=== PATIENT | male | born 1940 | race Caucasian/White ===

== ENCOUNTER 2017-10-08 05:41 | Day surgery (SDC) | payer MEDICARE ==
[~2017-10-08] VITALS: Ht 188 cm; Wt 88.0 kg
[~2017-10-08 05:41] MED LIST: CALCIUM PO; MAG PO; MULT-516 PO; TAMS-11 PO; ZINC PO; [UNRECOGNIZED DRUG - OTHER] PO
[2017-10-08] MEDS ORDERED: LACTATED RINGERS 1,000 ML IV SCH (06:06)
[2017-10-08] MEDS ORDERED: FENTANYL PF 250 MCG/5ML ONE (06:53)
[2017-10-08] MEDS ORDERED: MIDAZOLAM 1 MG/ML, 2ML ONE (06:53)
[2017-10-08] MEDS ORDERED: LIDOCAINE PF 2%, 5ML ONE (07:50)
[2017-10-08] MEDS ORDERED: DEXAMETHASONE 4 MG/ML, 1ML ONE (07:50)
[2017-10-08] MEDS ORDERED: ONDANSETRON 2MG/ML, 2ML ONE (07:50)
[2017-10-08] MEDS ORDERED: PROPOFOL 10 MG/ML, 20ML ONE (07:50)
[2017-10-08] MEDS ORDERED: CEFTRIAXONE 1,000 MG ONE (08:05)
[2017-10-08] MEDS ORDERED: PROMETHAZINE 25 MG/ML, 1ML IV PRN (09:30)
[2017-10-08] MEDS ORDERED: ACETAMINOPHEN 325 MG TABLET PO PRN (09:30)
[2017-10-08] MEDS ORDERED: ALBUTEROL SULFATE 2.5 MG/3 ML NPPB PRN (09:30)
[2017-10-08] MEDS ORDERED: OXYcodone 5 MG/5 ML ORAL.SOL UDC PO PRN (09:30)
[2017-10-08] MEDS ORDERED: HYDROmorphone 1 MG/ML, 1ML IV PRN (09:30)
[2017-10-08] MEDS ORDERED: METOPROLOL 1 MG/ML, 5ML IV PRN (09:30)
[2017-10-08] MEDS ORDERED: FENTANYL PF 100 MCG/2ML IV PRN (09:30)
[2017-10-08] MEDS ORDERED: hydrALAzine 20 MG/ML, 1ML IV PRN (09:30)
[2017-10-08] MEDS ORDERED: ACETAMINOPHEN 650 MG/20.3 ML UDC ONE (09:50)
[2017-10-08] MEDS ORDERED: OXYcodone 5 MG/5 ML ORAL.SOL UDC ONE (09:51)
== END 2017-10-08 13:50 ==
LOC: OUT 05:41
PROVIDERS: ATTEND Urology
DX: N40.0 Benign prostatic hyperplasia without lower urinary tract symptoms (principal); I10 Essential (primary) hypertension; I25.2 Old myocardial infarction; Z86.73 Personal history of transient ischemic attack (TIA), and cerebral infarction without residual deficits
CPT/HCPCS: 52630; 88305; 93005; C1769; J0696; J1100; J2250; J2405; J2704; J3010; J7120